=== PATIENT | female | born 1955 | race African-American/Black ===

== ENCOUNTER 2024-12-16 14:47 | Emergency (ER) | payer MEDICARE, OTHER ==
[~2024-12-16] VITALS: Ht 142.2 cm; Wt 47.2 kg
[2024-12-16] MEDS: IV NS 0.9% 1,000 ML BAG IV ONE (15:30)
[2024-12-16 15:57] LABS: PLATELET COUNT (AUTO) 287 K/uL (150-450); RED BLOOD CELL COUNT(AUTO) 4.50 MIL/uL (4.0-5.2); RED CELL DISTRIBUTION WIDTH 14.5 % (11.5-15.0); WHITE BLOOD COUNT (AUTO) 6.3 K/uL (4.3-11.0)
[2024-12-16 16:16] LABS: SODIUM SERUM 143.0 mmol/L (136-145)
[2024-12-16 16:19] LABS: CALCIUM, SERUM 9.1 mg/dL (8.5-10.1); CREATININE 0.3 mg/dL (0.6-1.3); UREA NITROGEN, BLOOD 6.0 mg/dL (7-18)
[2024-12-16 16:30] LABS: LACTIC ACID 1.4 mmol/L (0.4-2.0)
[2024-12-16] MEDS ORDERED: IOHEXOL-300 100 ML VIAL IV ONE (16:30)
[2024-12-16] MEDS ORDERED: IV NS 0.9% 250 ML IV ONE (16:30)
[2024-12-16 16:37] LABS: ASPARTATE AMINOTRANSFERASE 19.0 U/L (15-37); TOTAL PROTEIN, SERUM 6.8 g/dL (6.4-8.2)
[2024-12-16] MEDS ORDERED: POLY119P2 PO (18:04)
[2024-12-16] MEDS ORDERED: SENN-211 PO (18:04)
[2024-12-16 19:09] VITALS: BP 126/68; TEMP 98.2; O2SAT 98
== END 2024-12-16 20:07 ==
LOC: ER 14:50
DX: K59.00 Constipation, unspecified (principal); M19.012 Primary osteoarthritis, left shoulder; K82.8 Other specified diseases of gallbladder; Z88.8 Allergy status to other drugs, medicaments and biological substances; Z91.018 Allergy to other foods
CPT/HCPCS: 99285; 74177; 96360; 73030; 85025; 80048; 83605; 83690; 80076; 36415; J7030; J7050; Q9967